=== PATIENT | female | born 1980 | race Caucasian/White ===

== ENCOUNTER → 2016-06-25 | Outpatient (CLI) | payer OTHER ==
[~2016-06-25] MED LIST: ADVIL200 M2 PO; CLARITIN10 M2 PO; EFFEXOR75 M1 PO; LISINOPRIL-HCTZ1 T19 PO; VITAMIN C1000 M1 PO; VITAMIN D10000 UNIT
--- NOTE | ~2016-06-25 | CR97 ---
[facility] A Service of [facility] RADIOLOGY TEXT RESULTS PATIENT: JUAN MIGUEL ROWE LOCATION: [facility] : 80 UNIT #: [id number] AGE: [address]: Ryan Guerra III, MD SEX: F ORDER DR: [id number] [address] [address] [id number] O MR#: [id number] Acc #: [id number] NAME: JUAN MIGUEL ROWE : 1980 SEX: F STUDY DATE/TIME: 06/25/2016 8:25 UNIT: [facility] ROOM: STUDY DESCRIPTION: CR Esophagram Attending Physician: Ryan Guerra III, M.D. Referring Physician: Ryan Guerra III, M.D. Ordering Physician: Ryan Guerra III, M.D. Primary Care Physician: Luis Shepard M.D. MEDICAL IMAGING REPORT This report is preliminary unless electronic signature is present EXAM Esophagram 06/25/2016 INDICATION 36-year-old female undergoing preop evaluation for lap-band placement. Symptoms began today. TECHNIQUE AND COMPARISON Spot fluoroscopic views of the esophagus were obtained in various projections after the patient ingested gas crystals and thick and thin liquid barium on 06/25/2016. No comparisons. FINDINGS Notes indicate that approximately 0.9 minutes of fluoroscopy time was used in the case. 42 images from the procedure were saved to the [employer] system. The esophagus demonstrates an unremarkable primary stripping wave. No significant secondary or tertiary contractions identified. No focal mass, stricture, or mucosal abnormality. No hiatal hernia. IMPRESSION 1. Negative esophagram. 2. Notes indicate 0.9 minutes of fluoroscopy time was used in the case. Approximately 42 spot fluoroscopic views were saved to the [employer] system. Dictated by... Abdoul Brooke M.D. THIS IS AN ELECTRONICALLY VERIFIED REPORT Abdoul Brooke M.D. at 06/25/2016 3:39 PM [facility] A Service of [facility] RADIOLOGY TEXT RESULTS PATIENT: JUAN MIGUEL ROWE LOCATION: [facility] : 80 UNIT #: [id number] AGE: [address]: Ryan Guerra III, MD SEX: F ORDER DR: Viktor TD: 06/25/2016 13:15 JOB #: [id number] MEDICAL IMAGING REPORT COPY
--- NOTE | ~2016-06-25 | CR63 ---
[facility] A Service of [facility] RADIOLOGY TEXT RESULTS PATIENT: JUAN MIGUEL ROWE LOCATION: [facility] : 80 UNIT #: [id number] AGE: [address]: Ryan Guerra III, MD SEX: F ORDER DR: [id number] [facility] [address]. [place], [place] [address] [id number] O MR#: [id number] Acc #: [id number] NAME: JUAN MIGUEL ROWE : 1980 SEX: F STUDY DATE/TIME: 06/25/2016 8:00 UNIT: [facility] ROOM: STUDY DESCRIPTION: CR Chest 2 View Attending Physician: Ryan Guerra III, M.D. Referring Physician: Ryan Guerra III, M.D. Ordering Physician: Ryan Guerra III, M.D. Primary Care Physician: Luis Shepard M.D. MEDICAL IMAGING REPORT This report is preliminary unless electronic signature is present EXAM Chest PA and lateral 06/25/2016 HISTORY Morbid obesity. Preop laparoscopic gastric banding. Benign essential hypertension and shortness of breath today. FINDINGS PA and lateral examination of the chest upright shows a good expansion of the parenchyma with a normal distribution of the pulmonary vascularity. There is no indication of congestion, effusion, infiltrate, tumor, or nodular density. The pleural reflections and diaphragmatic contours are normal. The cardiac silhouette and mediastinal anatomy is within normal limits. IMPRESSION Normal chest. Dictated by... Masoud Sanchez M.D. THIS IS AN ELECTRONICALLY VERIFIED REPORT Masoud Sanchez M.D. at 06/25/2016 4:58 PM BAILEE/lenora TD: 06/25/2016 11:12 JOB #: [id number] MEDICAL IMAGING REPORT [facility] A Service of [facility] RADIOLOGY TEXT RESULTS PATIENT: JUAN MIGUEL ROWE [id number] : 80 UNIT #: [id number] AGE: [address]: Ryan Guerra III, MD SEX: F ORDER DR: ERICK
--- NOTE | ~2016-06-25 | EKG ---
PATIENT: JUAN MIGUEL ROWE UNIT #: [id number] Ventricular Rate: 84 BPM Atrial Rate: 84 BPM P-R Interval: 140 ms QRS Duration: 90 ms Q-T Interval: 358 ms QTC Calculation(Bezet): 423 ms P Brodhead: 17 degrees Calculated R [place]: 32 degrees Calculated T Brod[place]: 29 degrees Diagnosis Line: Normal sinus rhythm Diagnosis Line: Normal ECG Diagnosis Line: No previous ECGs available Diagnosis Line: Confirmed by WANDA SUMNER MD ([id number]) on 06/25/2016 Diagnosis Line: 4:46:07 PM INTERPRETING MD: BURAK CORONADO
[2016-06-25 09:50] LABS: HEMATOCRIT 42.9 % (35.0-45.0); HEMOGLOBIN 14.1 gm/dL (12.0-16.0); MEAN CORPUSCULAR HEMOGLOBIN 28.1 PG (28-34); MEAN PLATELET VOLUME 9.7 FL (6.5-11.5); RED BLOOD COUNT 5.04 X10e (3.90-5.30); RED CELL DISTRIBUTION WIDTH 14.5 % (11.0-15.5); WHITE BLOOD COUNT 9.9 X10e3 (4.0-10.5)
[2016-06-25 10:57] LABS: ALBUMIN SERUM 4.4 g/dL (3.5-5.0); ALKALINE PHOSPHATASE 71 U/L (32-92); ALT (SGPT) 30 U/L (10-40); AST (SGOT) 39 U/L (10-42); BILIRUBIN,TOTAL 0.9 mg/dL (0.2-2.0); BLOOD UREA NITROGEN 13 mg/dL (9-23); CALCIUM SERUM 9.4 mg/dL (8.4-10.2); CARBON DIOXIDE 25 mmol/L (22-31); CHLORIDE 102 mmol/L (100-111); CREATININE SERUM 0.5 mg/dL (0.6-1.4); GLOM FILT RATE Estimated ABOVE60 mL/min (>60); GLUCOSE FASTING 137 mg/dL (70-110); POTASSIUM 4.6 mmol/L (3.5-5.1); PROTEIN TOTAL SERUM 7.6 g/dL (6.0-8.3); SODIUM 139 mmol/L (135-145)
[2016-06-25 14:55] LABS: CHOLESTEROL 173 mg/dL (0-200); HDL CHOLESTEROL 43 mg/dL (35-95); LDL CHOLESTEROL 103 mg/dL (-130); LDL/HDL RATIO 2 RATIO (0-4); TRIGLYCERIDES 133 mg/dL (10-160)
== END | disposition home or self-care (01) ==
LOC: CRAD 07:48
PROVIDERS: Surgery
DX: Z01.818 Encounter for other preprocedural examination (principal)
CPT/HCPCS: 36415; 71020; 74220; 80053; 80061; 84443; 85027; 93005

== ENCOUNTER → 2016-07-07 | Day surgery (SDC) | payer OTHER ==
--- NOTE | ~2016-07-07 | CR7 ---
[facility] A Service of [facility] RADIOLOGY TEXT RESULTS PATIENT: JUAN MIGUEL ROWE LOCATION: [facility] : 80 UNIT #: [id number] AGE: [address]: Ryan Guerra III, MD SEX: F ORDER DR: [id number] [facility]. [place], [place] [address] [id number] O MR#: [id number] Acc #: [id number] NAME: JUAN MIGUEL ROWE : 1980 SEX: F STUDY DATE/TIME: 07/07/2016 12:04 UNIT: [facility] ROOM: STUDY DESCRIPTION: CR Abdomen Single AP View Attending Physician: Ryan Guerra III, M.D. Ordering Physician: Ryan Guerra III, M.D. Primary Care Physician: Luis Shepard M.D. MEDICAL IMAGING REPORT This report is preliminary unless electronic signature is present EXAM Abdomen, single view, 07/07/2016, 1204 hours. CLINICAL HISTORY Morbid obesity, postop LAP-BAND placement today. COMPARISON Esophagram, 06/25/2016 FINDINGS Single supine view of the abdomen excludes the lower pelvis and the left flank. There is a LAP-BAND present overlying the left T11 costovertebral junction oriented at 44 degrees from vertical. Radiopaque tubing courses inferiorly to a port overlying the left L5 transverse process. The bowel gas pattern is unremarkable. IMPRESSION LAP-BAND has been placed at the left T11 costovertebral junction oriented at 44 degrees from vertical. Radiopaque tubing courses inferiorly to a port overlying the left L5 transverse process. The visualized bowel gas pattern is unremarkable. Dictated by... Eliana Fall M.D. THIS IS AN ELECTRONICALLY VERIFIED REPORT Eliana Fall M.D. at 07/07/2016 6:58 PM ANGIE/rober TD: 07/07/2016 16:15 JOB #: [id number] [facility] A Service of [facility] RADIOLOGY TEXT RESULTS PATIENT: JUAN MIGUEL ROWE LOCATION: [facility] #: [id number] : [birth year] UNIT #: [id number] AGE: [address]: Ryan Guerra III, MD SEX: F ORDER DR: MEDICAL IMAGING REPORT COPY
--- NOTE | ~2016-07-07 | OR ---
Unit #: [id number] #: [id number] Patient: JUAN MIGUEL ROWE [id number] [facility]. [place], [place] [address] [id number] O MR#: [id number] NAME: JUAN MIGUEL ROWE ROOM: Date of Procedure: 07/07/2016 Admission Date: 07/07/2016 Surgeon: Ryan Guerra III, M.D. : 1980 Attending Physician: Ryan Guerra III, M.D. Primary Care Physician: Luis Shepard M.D. OPERATIVE REPORT PREOPERATIVE DIAGNOSIS Chronic morbid obesity. POSTOPERATIVE DIAGNOSIS Chronic morbid obesity. SECONDARY DIAGNOSIS Anterior paraesophageal hernia. PROCEDURES PERFORMED Laparoscopic adjustable gastric banding (AP standard with regular port) and laparoscopic paraesophageal hernia repair. CNC SERVICE TECHNICIAN Dr. Pete Gaston. SPECIMENS None. COMPLICATIONS None apparent. ESTIMATED BLOOD LOSS Minimal. INDICATIONS FOR PROCEDURE This is a 36-year-old lady, who has chronic morbid obesity with a BMI of 54 and associated comorbidities of reflux and sleep apnea. She has been through the bariatric program at [facility] and understands risks and benefits of the procedure. DESCRIPTION OF PROCEDURE After consent was obtained, including the risks and benefits of slippage, erosion, port dysfunction, and possible failure of weight loss due to noncompliance, the patient was taken to the operating room and placed in the supine position. General anesthetic was administered and the abdomen was prepped and draped in standard surgical fashion. I began by making a 2 cm incision just above and to the left of the umbilicus. I used a Visiport to enter the peritoneal cavity without any difficulty. C02 pneumoperitoneum was then established. Next, I placed a 5 mm port in the right upper quadrant, a 5 mm Moustapha liver retractor in Unit #: [id number] #: [id number] Patient: JUAN MIGUEL ROWE the subxiphoid region to provide exposure of the gastroesophageal junction. Next, a 10 mm port was placed in the left upper quadrant and a 5 mm port was placed in the left lateral subcostal region. I began by performing an examination of the GE junction to evaluate for a hiatal hernia. We then scored the peritoneal attachments overlying the angle of His. I then opened up the clear space in the gastrohepatic ligament, and then using 2 blunt graspers, I identified the small fat pad crossing over the right crura. I swept the fat anterior to the crura off the crura and using the pars flaccida, I created a retrogastric tunnel where the blunt grasper exited at the angle of His. Once I had made this tunnel safely, I then inserted an Allergan AP band into the abdominal cavity. This adjustable gastric band was then place around the upper part of the stomach and fastened and buckled anteriorly. We then tacked the lateral fundus over the band to the proximal pouch with 2 interrupted 0 Ethibond sutures. I then used a third stitch to imbricate the excess anterior stomach by going from the lesser curvature up towards where the last stitch was placed. We then had excellent hemostasis. I removed the Moustapha liver retractor. We then removed the port tubing through the initial port incision. The rest of the ports were removed, and the pneumoperitoneum was released. I then left a small tail on the tubing. We then attached the port to the excess band tubing. We placed a piece of Prolene mesh along the back side of the port and used a Prolene stitch to anchor this mesh in place. We then trimmed the excess mesh so that just a small footprint of mesh was in place behind the port. I then inserted the tubing back into the abdominal cavity, and we placed the port into a small pocket that was made just inferior to where our initial port incision was made. The mesh was in direct contact with the fascia, and this will scar in place to hold the port in place. We then injected all the port sites with 0.25% plain Marcaine, and I reapproximated the skin edges with interrupted 4-0 Vicryl subcuticular sutures. Steri-strips were then applied. The patient tolerated the procedure without any problems and returned to the recovery room in stable condition. ADDENDUM After exposure of the GE junction, the patient was noted to have a small to medium size anterior paraesophageal hernia. I scored the phrenoesophageal ligament, reduced the hernia defect and after identifying both the right and left crura, I reapproximated the defect with an interrupted 0 Ethibond [id number] suture. I then proceed with the case as listed above. Dictated by... Vincbronson Guerra III, M.D. VCL/wilmer TD: 07/08/2016 08:33 JOB #: [id number] Unit #: [id number] #: [id number] Patient: JUAN MIGUEL ROWE OPERATIVE REPORT X Ryan Guerra III, MD X PROCEDURE OPERATIVE NOTE
== END | disposition home or self-care (01) ==
LOC: CSUR 08:03
DX: E66.01 Morbid (severe) obesity due to excess calories (principal); K44.9 Diaphragmatic hernia without obstruction or gangrene; F41.9 Anxiety disorder, unspecified; I10 Essential (primary) hypertension; G47.33 Obstructive sleep apnea (adult) (pediatric); Z79.899 Other long term (current) drug therapy
CPT/HCPCS: 74000; 84703; C1781; J0690; J1650; J1885; J2250; J2405; J3010